=== PATIENT | male | born 1995 | race Caucasian/White ===

== ENCOUNTER 2018-09-24 13:27 | Emergency (ER) | payer OTHER ==
[~2018-09-24] VITALS: Ht 185.4 cm; Wt 63.5 kg
[~2018-09-24 13:27] MED LIST: BACTRIM DS TAB1 EACH PO
[2018-09-24 13:29] VITALS: BP 110/74
== END 2018-09-24 14:23 | disposition home or self-care (01) ==
LOC: ER 13:27
DX: F41.9 Anxiety disorder, unspecified (principal); F19.10 Other psychoactive substance abuse, uncomplicated; R56.9 Unspecified convulsions; Z88.0 Allergy status to penicillin; Z88.8 Allergy status to other drugs, medicaments and biological substances

== ENCOUNTER 2019-10-15 19:02 | Emergency (ER) | payer OTHER ==
[~2019-10-15] VITALS: Ht 185.4 cm; Wt 59.0 kg
[2019-10-15 19:25] VITALS: BP 135/94
--- NOTE | 2019-10-16 16:21 | EKG ---
[facility] [place] [address] ELECTROCARDIOGRAM REPORT Name: STARR ROMERO Room #: DEP [facility]#: [id number] Admission: 10/15/19 Attend Phys: Discharge: 10/15/19 Date of : [birth year] Report #: [id number] THIS REPORT FOR: cc: NO FAMILY PHYSICIAN or PCP NO FAMILY PHYSICIAN or PCP Kj Lara MD [facility] THIS REPORT FOR: //name// [facility] ED Test Date: 2019-10-15 Test Time: 20:09:58 Pat Name: STARR ROMERO Department: Room: Gender: Professor Of English: [facility] : 1995 Requested By: Lizet Salinas Order Number: [id number] MD: Kj Lara Measurements Intervals [place] Rate: 117 P: 84 NV: 131 QRS: 210 QRSD: 84 T: 53 QT: 321 QTc: 448 Interpretive Statements Sinus tachycardia Biatrial enlargement Right axis deviation Baseline wander in lead(s) V6 Compared to ECG 10/12/2015 04:59:27 Atrial abnormality now present Electronically Signed On 10-16-2019 16:21:12 CDT by Kj Lara [email or web address] <ELECTRONICALLY SIGNED> By: Kj Lara MD, [facility] 10/16/19 1621 08 08 Kj Lara MD, [facility] /EPI
== END 2019-10-15 20:36 | disposition home or self-care (01) ==
LOC: ER 19:02
DX: R07.89 Other chest pain (principal); R23.8 Other skin changes; R00.0 Tachycardia, unspecified; Z88.8 Allergy status to other drugs, medicaments and biological substances; Z88.0 Allergy status to penicillin